=== PATIENT | female | born 2000 ===

== ENCOUNTER 2023-11-14 16:50 | Emergency (ER) | payer OTHER ==
[~2023-11-14] VITALS: Ht 157.4 cm; Wt 84.4 kg
[2023-11-14] MEDS ORDERED: ESCITALOPRAM OX20 MG PO (16:59)
[2023-11-14] MEDS ORDERED: Amoxicillin/Clavulanate Pota 875 MG TAB PO ONE (17:05)
[2023-11-14] MEDS ORDERED: AMOX-CLAV 875-1 EACH PO (17:08)
== END 2023-11-14 17:15 | disposition home or self-care (01) ==
LOC: ED 16:50
DX: H66.92 Otitis media, unspecified, left ear (principal)